=== PATIENT | male | born 1995 | race Caucasian/White ===

== ENCOUNTER 2023-11-08 08:31 | Emergency (ER) | payer OTHER ==
[2023-11-08] MEDS ORDERED: Lidocaine 1% (PF) 30 ML VIAL ONE (08:48)
[2023-11-08] MEDS ORDERED: Bacitracin 1 PK ONE (09:35)
== END 2023-11-08 09:56 | disposition home or self-care (01) ==
LOC: EEVIPCON 08:31 → NAV ERS 08:31
DX: S61.215A Laceration without foreign body of left ring finger without damage to nail, initial encounter (principal); X58.XXXA Exposure to other specified factors, initial encounter
CPT/HCPCS: 12001; 99282; J2001